=== PATIENT | male | born 1975 | race Caucasian/White ===

== ENCOUNTER 2022-11-21 09:59 | Emergency (ER) | payer BC ==
--- OUTSIDE RECORDS SUMMARY | 2022-11-21 10:02 | XMS REPORT | Continuity of Care Document ---
:1975 Author Organization [facility] t Address [address] [place] [address]. [address] [place] [address] Care Team Providers Name Role Phone FELICITA ALEXANDRE Primary Care Physician Unavailable Arleth Hairston Attending Clinician Felicita Sampson Attending Clinician ARLETH HUSSEIN Attending Clinician Unavailable Doctor Unassigned, [place] Attending Clinician Unavailable ARLETH HUSSEIN Admitting Clinician Unavailable Payers Payer Name Policy Type Policy Number Effective Date Expiration Date S ource Problems Condition Condition Condition Status Onset Resolution Last Treating Co mments Source Name Details Category Date Date Treatment Clinician Date Left groin Left groin Disease Active 0 U nivers mass mass 6-06 ity of 00:00: 00 [facility] Allergies, Adverse Reactions, Alerts Allergy Allergy Status Severity Reaction(s) Onset Inactive Treating Comm ents Source Name Type Date Date Clinician Bromphen Propensi Active Anaphylaxis 2021-0 U nivers iramine ty to 08-28 ity of adverse 00:00: [place] reaction 00 [facility] s [facility] Morphine Propensi Active Itching 0 Unive rs ty to 606 ity of adverse 00:00: [place] reaction 00 Medical s [facility] BROMPHEN DRUG Active Anaphylaxis 0 Uni vers IRAMINE INGREDI 6-06 ity of 00:00: [place] 00 Medical [facility] MORPHINE DRUG Active ITCHING Univers INGREDI 6-06 ity of 00:00: 00 Medical [facility] Social History Social Habit Start Date Stop Date Quantity Comments Source Exposure to 2021-09-08 2021-09-18 Not sure University of SARS-CoV-2 00:00:00 15:16:00 [facility] (event) [place] Tobacco use and 2021-08-28 2021-08-28 Never used Universit y of exposure 00:00:00 00:00:[address] [facility] Alcohol intake 2021-08-28 2021-08-28 Lifetime University of 00:00:00 00:00:00 non-drinker [facility] (finding) [place] Sex Ass[birth year] Universit y of 00:00:00 00:00:[address] [facility] Smoking Status Start Date Stop Date Source Never smoker [facility] Medications Ordered Filled Start Stop Current Ordering Indication Dosage Frequency Signature Comments Components Source Medication Medication Date Date Medication? Clinician (SIG) Name Name No known No Univers medications 6-06 ity of 16:31: [address] No known 2021-0 No Univers medications 6-06 ity of 16:31: [address] No known 2021-0 No Univers medications 6-06 ity of 16:31: [address] No known 2021-0 No Univers medications 6-06 ity of 16:31: [address] No known 2021-0 No Univers medications 6-06 ity of 16:31: [address] No known 2021-0 No Univers medications 6-06 ity of 16:31: [address] No known 2021-0 No Univers medications 6-06 ity of 16:31: [address] No known 2021-0 No Univers medications 6-06 ity of 16:31: [address] No known 2021-0 No Univers medications 6-06 ity of 16:31: [address] Immunizations Ordered Filled Immunization Date Status Comments Sour e Immunization Name Name SARS-COV-2 COVID-19 2020-12-01 Completed Unive rsity of PFIZER VACCINE 00:00:00 [facility] SARS-COV-2 COVID-19 2020-12-01 Completed Unive rsity of PFIZER VACCINE 00:00:00 [facility] SARS-COV-2 COVID-19 2020-12-01 Completed Unive rsity of PFIZER VACCINE 00:00:00 [facility] SARS-COV-2 COVID-19 2020-12-01 Completed Unive rsity of PFIZER VACCINE 00:00:00 [facility] SARS-COV-2 COVID-19 2020-12-01 Completed Unive rsity of PFIZER VACCINE 00:00:00 [facility] SARS-COV-2 COVID-19 2020-12-01 Completed Unive rsity of PFIZER VACCINE 00:00:00 [facility] SARS-COV-2 COVID-19 2020-12-01 Completed Unive rsity of PFIZER VACCINE 00:00:00 [facility] SARS-COV-2 COVID-19 2020-12-01 Completed Unive rsity of PFIZER VACCINE 00:00:00 [facility] SARS-COV-2 COVID-19 2020-12-01 Completed Unive rsity of PFIZER VACCINE 00:00:00 [facility] Vital Signs Vital Name Observation Time Observation Value Comments Source Systolic blood 2021-08-28 21:31:00 115 mm[Hg] Univer sity of pressure [facility] Diastolic blood 2021-08-28 21:31:00 81 mm[Hg] Unive rsity of pressure [facility] Heart rate 2021-08-28 21:31:00 72 /min [facility] Body temperature 2021-08-28 21:31:00 36.94 [facility] height 2021-08-28 21:31:00 177.8 cm [facility] Body weight 2021-08-28 21:31:00 80.423 kg [facility] BMI 2021-08-28 21:31:00 25.44 kg/m2 [facility] Oxygen saturation in 2021-08-28 21:31:00 99 /min [facility] Arterial blood by [facility] Pulse oximetry [place] Procedures Procedure Date / Time Performed Performing Clinician [facility] e ASSIGNMENT OF BENEFITS 2021-09-12 19:33:07 Doctor Unassigned, No [facility] Branch Encounters Start End Encounter Admission Attending Care Care Encounter Source Date/Time Date/Time Type Type Clinicians Facility Department ID 2021-09-26 2021-09-26 Telephone ADAM Hussein [id number] [facility] 00:00:00 00:00:00 [facility] [id number] it y of [place] [id number] Jose C as REEMA?BLEA [id number] Nh kadeem Z[address] OFFICE [facility] 2021-09-26 2021-09-26 [facility] [id number] Univers 00:00:00 00:00:00 Arleth [facility] [id number] it y [facility] [id number] Jose C as REEMA?BLEA [id number] Nh kadeem ZHENG[address] 2021-09-26 2021-09-26 Telephone [facility] [id number] Univers 00:00:00 00:00:00 Felicita A HEALTH [id number] i ty of [place] [id number] Jose C as REEMA?BLEA [id number] Nh kadeem Z[address] 2021-09-22 2021-09-22 [facility] [id number] Univers 14:14:29 23:59:00 ARLETH vicdenia [facility] 2021-09-22 2021-09-22 [facility] [id number] Univers 14:14:29 23:59:00 Encounter Arleth [place] [id number] ity of [id number] [facility] [id number] [address] 2021-09-13 2021-09-13 [facility]phone [facility] [id number] Univers 00:00:00 00:00:00 Arleth HEALTH [id number] it y of [facility] [id number] Jose C as REEMA?BLEA [id number] Nh alexx[address] 2021-09-12 2021-09-12 [facility] [id number] Univers 14:35:10 23:59:00 ARLETH tristan [facility] 2021-09-12 2021-09-12 [facility] [id number] Univers 14:35:10 23:59:00 Encounter Arleth GRAHAM [id number] ity of [id number] [facility] [id number] [place] 806 [place] 2021-09-12 2021-09-12 Orders Doctor PRITESH [id number] Univers 00:00:00 00:00:00 Only Unassigned, ZORAIDA [id number] ity of [place] [facility] [id number] Jose C as [id number] [place] 009 [place] 2021-08-29 2021-08-29 Telephone [facility] [id number] Univers 00:00:00 00:00:00 Arleth HEALTH [id number] it y of [place] [id number] Jose C as REEMA?BLEA [id number] [address] MEDICAL OFFICE [facility] 2021-08-28 2021-08-28 Office [facility] [id number] Univers 16:30:00 17:19:23 Visit Arleth MONROE [id number] it y of [place] [id number] Jose C as REEMA?BLEA [id number] [address] MEDICAL OFFICE BUILDING 2021-08-28 2021-08-28 Outpatient [facility] [id number] Univers 16:30:00 17:19:23 ARLETH ity of [facility] 2021-08-28 2021-08-28 Orders Doctor PRITESH [id number] Univers 00:00:00 00:00:00 Only Unassigned, ZORAIDA [id number] ity of [place] [facility] [id number] Jose C as [phone] [address] Results This patient has no known results.
[2022-11-21] MEDS ORDERED: FLUORESCEIN SODIUM 1 MG/WRAP ONE (10:20)
[2022-11-21] MEDS ORDERED: TETRACAINE HCL 0.5% 4ML OPTH ONE (10:20)
--- NOTE | 2022-11-21 10:28 | ER ---
Nurse's Notes [facility] Name: Edgardo Wong Age: 47 yrs Sex: Male : 1975 Arrival Date: 11/21/2022 Time: 09:59 Bed 6 Private MD: Diagnosis: Ocular pain, right eye Presentation: 11/21 10:08 Chief complaint: Right eye pain since 0430 today. Denies injury/vision changes. hb Coronavirus screen: At this time, the client does not indicate any symptoms associated with coronavirus-19. Ebola Screen: No symptoms or risks identified at this time. Initial Sepsis Screen: Does the patient meet any 2 criteria? No. Patient's initial sepsis screen is negative. Does the patient have a suspected source of infection? No. Patient's initial sepsis screen is negative. Risk Assessment: Do you want to hurt yourself or someone else? Patient reports no desire to harm self or others. Onset of symptoms was November 21, 2022 at 04:30. 10:08 Method Of Arrival: Ambulatory hb 10:08 Acuity: JEANIE 4 hb Historical: - Allergies: 10:10 Bromphenex DM; hb - Home Meds: 10:10 None [Active]; hb - PMHx: 10:10 None; hb - PSHx: 10:10 None; Knee - Left; hb - Immunization history:: Adult Immunizations up to date. - Social history:: Smoking status: Patient denies any tobacco usage or history of. Screenin:32 [facility] ED Fall Risk Assessment (Adult) History of falling in the last 3 months, ap3 including since admission No falls in past 3 months (0 pts). Abuse screen: Denies threats or abuse. Nutritional screening: No deficits noted. Tuberculosis screening: No symptoms or risk factors identified. Assessment: 10:32 General: Appears uncomfortable, Behavior is calm, cooperative, appropriate for age. ap3 Pain: Complains of pain in right eye. Neuro: Level of Consciousness is awake, alert, obeys commands, Oriented to person, place, time, situation, Appropriate for age Gait is steady. Cardiovascular: Patient's skin is warm and dry. Respiratory: Airway is patent Respiratory effort is even, unlabored, Respiratory pattern is regular, symmetrical. EENT: Reports nasal congestion right nare pain in right eye. Vital Signs: 10:08 BP 135 / 81; Pulse 73; Resp 16; Temp 97.9(TE); Pulse Ox 96% on R/A; Weight 83.91 kg; hb Height 5 ft. 10 in. ; Pain 8/10; 10:08 Body Mass Index 26.54 (83.91 kg, 177.8 cm) hb 10:08 Pain Scale: Adult hb Visual Acuity: 10:32 Left Eye Visual acuity 20/30, ; Right Eye Visual acuity 20/40, ; Both Eyes Visual rs5 acuity 20/25; Without Lenses; ED Course: 10:01 Patient arrived in ED. mr 10:04 Tank Magdaleno DO is Attending Physician. ms3 10:10 Triage completed. hb 10:11 Arm band placed on. hb 10:32 Patient has correct armband on for positive identification. Bed in low position. Call ap3 light in reach. Side rails up X 1. Pulse ox on. NIBP on. 10:51 No provider procedures requiring assistance completed. Patient did not have IV access nj1 during this emergency room visit. 10:52 Provided Education on: discharge instructions.. nj1 Administered Medications: No medications were administered Medication: 10:33 VIS not applicable for this client. ap3 Outcome: 10:27 Discharge ordered by MD. ms3 10:51 Discharged to home ambulatory. nj1 10:51 Condition: stable 10:51 Discharge instructions given to patient, Instructed on discharge instructions, follow up and referral plans. safety practices, Demonstrated understanding of instructions, follow-up care. 10:55 Patient left the ED. nj1 Signatures: Sheeba Mcclendon mr Rocio Finley RN AMY Blanquita Lin RN RN ap3 Tank Magdaleno DO DO ms3 Andrea Espinoza RN RN rs5 Estefany Jacobson RN RN nj1
--- NOTE | 2022-11-21 10:55 | EDPHYS ---
Physician Documentation [facility] Name: Edgardo Wong Age: 47 yrs Sex: Male : 1975 Arrival Date: 11/21/2022 Time: 09:59 Bed 6 Private MD: ED Physician Tank Magdaleno HPI: 11/21 10:35 This 47 yrs old Male presents to ER via Ambulatory with complaints of Eye Problem. ms3 10:35 47-year-old male with no past medical history presents for right eye pain that began at ms3 4:30 AM. Patient states the pain is a 8/10. Patient states he does have clear discharge from his eye. Patient denies headache, or change in vision. Patient denies alleviating or inciting factors. Historical: - Allergies: 10:10 Bromphenex DM; hb - Home Meds: 10:10 None [Active]; hb - PMHx: 10:10 None; hb - PSHx: 10:10 None; Knee - Left; hb - Immunization history:: Adult Immunizations up to date. - Social history:: Smoking status: Patient denies any tobacco usage or history of. ROS: 10:35 Constitutional: Negative for fever, and chills. ms3 10:35 Cardiovascular: Negative for chest pain, and palpitations. Respiratory: Negative for shortness of breath, cough, wheezing, and pleuritic chest pain, Abdomen/GI: Negative for abdominal pain, nausea, vomiting, diarrhea, and constipation, Skin: Negative for injury, rash, and discoloration. 10:35 Eyes: Positive for pain. 10:35 All other systems are negative. Exam: 10:35 Visual Acuity: I have reviewed the nursing documentation. ms3 10:35 Constitutional: This is a well developed, well nourished patient who is awake, alert, and in no acute distress. Head/Face: Normocephalic, atraumatic. 10:35 Eyes: Periorbital structures: appear normal, Pupils: equal, round, and reactive to light and accomodation, Extraocular movements: no acute changes, Conjunctiva: normal, Corneas: are normal, no evidence of abrasion, no foreign body, a fluorescein strip employed to appreciate the findings, Lids and lashes: appear normal, Visual [place]: are intact, Intraocular pressure: right eye = 20mmHg. 10:35 Cardiovascular: Regular rate and rhythm with a normal S1 and S2. No gallops, murmurs, ms3 or rubs. Normal PMI, no JVD. No pulse deficits. Respiratory: Lungs have equal breath sounds bilaterally, clear to auscultation and percussion. No rales, rhonchi or wheezes noted. No increased work of breathing, no retractions or nasal flaring. Abdomen/GI: Soft, non-tender, with normal bowel sounds. No distension or tympany. No guarding or rebound. No evidence of tenderness throughout. Vital Signs: 10:08 BP 135 / 81; Pulse 73; Resp 16; Temp 97.9(TE); Pulse Ox 96% on R/A; Weight 83.91 kg; hb Height 5 ft. 10 in. ; Pain 8/10; 10:08 Body Mass Index 26.54 (83.91 kg, 177.8 cm) hb 10:08 Pain Scale: Adult hb Visual Acuity: 10:32 Left Eye Visual acuity 20/30, ; Right Eye Visual acuity 20/40, ; Both Eyes Visual rs5 acuity 20/25; Without Lenses; MDM: 10:27 Patient medically screened. ms3 10:35 Differential diagnosis: Corneal abrasion of Corneal ulcer of Foreign body in Acute ms3 iritis of Acute glaucoma in. Data reviewed: vital signs, nurses notes, and as a result, I will discharge patient. I considered the following discharge prescriptions or medication management in the emergency department Medications were administered in the Emergency Department. See MAR. Counseling: I had a detailed discussion with the patient and/or guardian regarding the historical points, exam findings, and any diagnostic results supporting the discharge/admit diagnosis, the need for outpatient follow up, to return to the emergency department if symptoms worsen or persist or if there are any questions or concerns that arise at home. Special discussion: I discussed with the patient/guardian in detail that at this point there is no indication for admission to the hospital. It is understood, however, that if the symptoms persist or worsen the patient needs to return immediately for re-evaluation. ED course: Discussed exam findings with patient. Patient's right eye pressure 20, visual acuity 20/40, no corneal abrasion seen on exam, no foreign bodies identified with eversion of eyelid. Patient follow-up Dr. Tello in 1 to 2 days. Patient understands and agrees with plan. All questions were answered. Return precautions discussed include worsening symptoms, or any other concerns. Administered Medications: No medications were administered Disposition: 12:09 Chart complete. ms3 Disposition Summary: 11/21/22 10:27 Discharge Ordered Location: Home ms3 Condition: Stable ms3 Diagnosis - Ocular pain, right eye ms3 Discharge Instructions: - Discharge Summary Sheet ms3 - Pain Without a Known Cause ms3 Forms: - Work release form ap3 - Medication Reconciliation Form ms3 - Thank You Letter ms3 - Antibiotic Education ms3 - Prescription Opioid Use ms3 - Patient Portal Instructions ms3 - Leadership Thank You Letter ms3 Signatures: Rocio Finley, RN RN Tank Burkett, DO ms3
[2022-11-21 11:04] VITALS: BP 135/81; TEMP 97.9; O2SAT 96
== END 2022-11-21 10:55 | disposition home or self-care (01) ==
LOC: ER 09:59
DX: H57.11 Ocular pain, right eye (principal); Z88.8 Allergy status to other drugs, medicaments and biological substances